=== PATIENT | male | born 1990 | race Caucasian/White ===

== ENCOUNTER 2016-07-30 18:06 | Emergency (ER) | payer OTHER ==
--- NOTE | 2016-07-30 18:27 | EDPHY ---
H & P Time Seen by Provider: 07/30/16 18:26 HPI/ROS: Chief complaint. Fall HPI. 25-year-old male skateboarding and was on a wall over a stair well. He lost his balance and fell 8 feet onto his face. He does not think he lost consciousness but had visual disturbance and altered mental status for. He time that seems to be resolving. He also hurt both wrists. Denies neck pain back pain, chest pain, trouble breathing, abdominal pain. He has abrasions to his right elbow. Denies hip leg pain. Large hematoma on right forehead ROS Constitutional. no fever/chills, no weakness Eyes. Altered vision initially ENT. Head injury Cardiovascular. no chest pain Respiratory. no shortness of breath, no cough Abdominal. no abdominal pain, no nausea/vomiting, no diarrhea . no problems urinating MS. no calf pain/swelling, no neck/back pain, bilateral wrist pain Skin. no rash; abrasion right elbow Lymph. no swollen glands Neuro. Headache and initially altered mental status Past Medical/Surgical History: Concussions, herniated L1 did this, Achilles repair, tib-fib fracture Social History: Single, daily smoker, no alcohol Smoking Status: Current every day smoker Physical Exam: General Appearance: Alert well-developed male mild distress vital signs are stable Eyes: Pupils equal and round no pallor or injection. ENT, no hemotympanum or Mckeon sign. Slight superficial chip of the right upper incisor but otherwise good occlusion. Large hematoma to the right forehead Respiratory: There are no retractions, lungs are clear to auscultation. Cardiovascular: Regular rate and rhythm. Gastrointestinal: Abdomen is soft and nontender, no masses, bowel sounds normal. Neurological: Awake and alert, sensory and motor exams grossly normal. Skin: Warm and dry, no rashes. Musculoskeletal: Neck is supple nontender. T, L, S spine are nontender Extremities good range of motion though tenderness with both wrists. No obvious swelling or deformity Psychiatric: Patient is oriented X 3, there is no agitation. Constitutional: Initial Vital Signs Temperature (C) 36.4 C 07/30/16 18:07 Heart Rate 68 07/30/16 18:07 Respiratory Rate 16 07/30/16 18:07 Blood Pressure 138/98 H 07/30/16 18:07 O2 Sat (%) 100 07/30/16 18:07 O2 Delivery Mode Room Air Allergies/Adverse Reactions: No Known Allergies Allergy (Verified 11/30/15 08:45) Home Medications: Medication Instructions Recorded Clonadine 07/30/16 Medical Decision Making - Diagnostics Imaging Results: Imaging Impressions Head CT 07/30/16 18:51 Impression: 1. Right frontal scalp hematoma. 2. Otherwise normal CT brain without contrast. 3. No epidural or subdural hematoma. Findings and recommendations discussed with Emergency Department physician, Dr. Earl Monge at 1920 hours on July 30, 2016. Final report concurs with initial preliminary interpretation. Head no head CT reviewed by me and discussed with Dr. Lorenz shows no evidence for fracture or intracranial bleed x-ray of the left wrist shows small fragment off the ulnar styloid. 1 of the pieces appears rounded like it is old. No previous x-rays for comparison. New versus old distal ulnar styloid fracture Procedures: Patient is placed in a Velcro splint to the left wrist. Post splint application shows normal anatomic position and distal motor vascular sensitivity to be intact ED Course/Re-evaluation: Patient declines wrist x-rays Re-evaluation 7:35 p.m.--the patient is stable and neurologically intact. The patient, his mom, and I discussed imaging study results. Now the patient would like an x-ray of his left wrist. It is ordered Re-evaluation 8:00 p.m.. Patient is stable. He is social interactive. He is neurologically intact. Differential Diagnosis: I considered fracture, dislocation, skull fracture, intracranial injury, concussion - Data Points Medications Given: Discontinued Medications Ibuprofen (Motrin) 800 mg PO EDNOW ONE Stop: 07/30/16 18:52 Last Admin: 07/30/16 19:36 Dose: 800 mg Departure - Departure Disposition: Home, Routine, Self-Care Clinical Impression: Concussion Qualifiers: Encounter type: initial encounter Loss of consciousness presence/duration: without LOC Qualified Code(s): S06.0X0A - Concussion without loss of consciousness, initial encounter Fracture of ulnar styloid Qualifiers: Fracture type: closed Fracture alignment: displaced Laterality: left Condition: Good Instructions: Concussion (ED), Chronic Traumatic Encephalopathy (ED) Additional Instructions: Ice to sore areas of head and wrist next 24-48 hours. Tylenol 1000 mg every 4- 6 hours, ibuprofen 800 mg every 6 hours for pain. Splint on for 1 week. For continuing symptoms to follow up with orthopedist. Re-evaluation by Dr. Schneider in the next 2-3 days without fail Referrals: Garry Schneider MD [Primary Care Provider] - 2-3 days without fail Jessika Addison MD [Medical Doctor] - 5-7 days, if not improved
[2016-07-30] MEDS ORDERED: IBUPROFEN 200 MG TAB PO ONE (18:51)
[2016-07-30 21:21] VITALS: BP 138/81; PULSE 71; RESP 18; TEMP 98.6; O2SAT 97
== END 2016-07-30 20:10 | disposition home or self-care (01) ==
DX: S06.0X0A Concussion without loss of consciousness, initial encounter (principal); S52.612A Displaced fracture of left ulna styloid process, initial encounter for closed fracture; F17.200 Nicotine dependence, unspecified, uncomplicated; W17.89XA Other fall from one level to another, initial encounter
CPT/HCPCS: L3908